=== PATIENT | male | born 1965 | race Caucasian/White ===

== ENCOUNTER 2019-09-10 09:42 | Outpatient (CLI) | payer BC ==
[2019-09-10 14:33] LABS: BASOPHILS # (AUTO) 0.1 10^3/uL (0.0-0.1); BASOPHILS % (AUTO) 0.9 %; EOSINOPHILS # (AUTO) 0.1 10^3/uL (0.0-0.7); EOSINOPHILS % (AUTO) 2.6 %; HGB - HEMOGLOBIN 16.4 g/dL (14.0-18.0); LYMPHOCYTES # (AUTO) 2.5 10^3/uL (1.5-3.5); LYMPHOCYTES % (AUTO) 45.2 %; MEAN CORPUSCULAR HEMOGLOBIN 31.8 pg (27.0-31.0); MEAN CORPUSCULAR HGB CONC 33.5 g/dL (32.0-36.0); MEAN PLATELET VOLUME 10.9 fL (7.4-11.4); MONOCYTES # (AUTO) 0.4 10^3/uL (0.0-1.0); MONOCYTES % (AUTO) 7.3 %; NEUTROPHILS # (AUTO) 2.4 10^3/uL (1.5-6.6); NEUTROPHILS % (AUTO) 43.5 %; PLT - PLATELET COUNT 286 10^3/uL (130-450); RED BLOOD COUNT 5.15 10^6/uL (4.70-6.10); RED CELL DISTRIBUTION WIDTH 11.9 % (12.0-15.0); WHITE BLOOD COUNT 5.5 x10^3/uL (4.8-10.8)
[2019-09-10 15:08] LABS: ALBUMIN 4.6 g/dL (3.2-5.5); ALBUMIN/GLOBULIN RATIO 1.5 (1.0-2.2); ALKALINE PHOSPHATASE 48 IU/L (42-121); ALT ALANINE AMINOTRANSFERASE 29 IU/L (10-60); AST ASPARTATE AMINOTRANSFERASE 21 IU/L (10-42); BUN - BLOOD UREA NITROGEN 19 mg/dL (6-20); CALCIUM 9.6 mg/dL (8.5-10.3); CARBON DIOXIDE - CO2 26 mmol/L (21-32); CHLORIDE 105 mmol/L (101-111); CHOL/HDL RATIO 3.7 (<5.0); CHOLESTEROL 157 mg/dL; CREATININE 1.1 mg/dL (0.6-1.2); GFR - MDRD 70 (>89); GLUCOSE 97 mg/dL (70-100); HDL CHOLESTEROL 42 mg/dL; LDL CHOLESTEROL,CALCULATED 95 mg/dL; LDL/HDL RATIO 2.3 (<3.6); SODIUM 140 mmol/L (135-145); TOTAL PROTEIN 7.6 g/dL (6.7-8.2); VLDL CHOLESTEROL 20 mg/dL
== END 2019-09-10 23:59 | disposition home or self-care (01) ==
LOC: LAB.WCP 09:42
PROVIDERS: ATTEND Physician Assistant Medical
DX: Z00.00 Encounter for general adult medical examination without abnormal findings (principal)
CPT/HCPCS: 36415; 80053; 80061; 83721; 84153; 84443; 85025

== ENCOUNTER 2021-10-30 07:03 | Day surgery (SDC) | payer BC ==
[2021-10-30] MEDS ORDERED: LACTATED RINGERS 1,000 ML IV ONE ×2 (07:12→08:57)
[2021-10-30] MEDS ORDERED: PROPOFOL 500 MG/50 ML 500 MG/50 ML VIAL ONE (08:01)
[2021-10-30] MEDS ORDERED: fentaNYL 100 MCG/2 ML VIAL ONE (08:03)
[2021-10-30] MEDS ORDERED: MIDAZOLAM 2 MG/2 ML VIAL ONE (08:03)
--- NOTE | 2021-10-30 08:10 | ANESTHESIA ---
Pre-Anesthesia VS, & Labs - Diagnosis screening - Procedure colonoscopy Vital Signs: Temp Pulse Resp BP Pulse Ox 36.4 C L 61 14 125/89 H 96 10/30/21 07:10 10/30/21 07:10 10/30/21 07:10 10/30/21 07:10 10/30/21 07:10 Height: 6 ft 2 in Weight (kg): 122 kg Body Mass Index: 34.5 BMI Classification: Obese - NPO >8 hours Home Medications and Allergies Home Medications: Ambulatory Orders Ascorbic Acid [Vitamin C] 1 tab PO DAILY 10/29/21 Cholecalciferol [Vitamin D3] 1 cap PO DAILY 10/29/21 Ibuprofen [Motrin] 1 tab PO DAILY 10/29/21 Multivitamin 1 each PO DAILY 10/29/21 Ascorbic Acid [Vitamin C] 1 tab PO DAILY 10/29/21 Cholecalciferol [Vitamin D3] 1 cap PO DAILY 10/29/21 Ibuprofen [Motrin] 1 tab PO DAILY 10/29/21 Multivitamin 1 each PO DAILY 10/29/21 Allergies/Adverse Reactions: Allergies Allergy/AdvReac Type Severity Reaction Status Date / Time No Known Drug Allergies Allergy Verified 10/30/21 07:36 Anes History & Medical History - Anesthetic History Anesthesia Complications: reports: No previous complications Family history of Anesthesia Complications: Denies Family history of Malignant Hyperthermia: Denies - Medical History Cardiovascular: reports: Other Pulmonary: reports: Sleep apnea Gastrointestinal: reports: Colon polyps Urinary: reports: Frequency Musculoskeletal: reports: Osteoarthritis Endocrine/Autoimmune: reports: None Skin: reports: Eczema - Surgical History General: reports: Appendectomy, Colonoscopy Eyes Ears Nose Throat (EENT): reports: Other Cardiothoracic: reports: Other Orthopedic: reports: Arthroscopic surgery Exam General: Alert, Oriented x3, Cooperative Dental: WNL Mouth Openin Fingerbreadth Neck Mobility: Normal Mallampati classification: II Thyromental Distance: 4-6 cm Respiratory: Lungs clear Cardiovascular: Regular rate Plan Anesthesia Type: Total IV Regional Block: Per Surgeon's request for Post Op pain control Consent for Procedure(s) Verified and Reviewed: Yes Code Status: Attempt Resuscitation ASA classification: 2-Mild systemic disease Is this case an emergency?: No
--- NOTE | 2021-10-30 08:21 | HISTORY & PHYSICAL EXAMINATION ---
Chief Complaint - Chief Complaint Chief Complaint: history colon polyps History of Present Illness - History Obtained From Records Reviewed: yes History obtained from: pt Exam Limitations: none - History of Present Illness HPI Comment/Other: colonoscopy 06/2016 2 adenomas removed. Here for surveillance. History - Past Medical History Cardiovascular: reports: Other Respiratory: reports: Sleep apnea Endocrine/Autoimmune: reports: None GI: reports: Colon polyps : reports: Frequency HEENT: reports: Chronic hearing loss Psych: reports: None Musculoskeletal: reports: Osteoarthritis Derm: reports: Eczema MRSA Hx?: No - Past Surgical History General: reports: Appendectomy, Colonoscopy Ortho: reports: Arthroscopic surgery Cardiovascular: reports: Other HEENT: reports: Other Meds/Allgy - Home Medications Home Medications: Ambulatory Orders Medication Instructions Recorded Confirmed Ascorbic Acid [Vitamin C] 1 tab PO DAILY 10/29/21 10/30/21 Cholecalciferol [Vitamin D3] 1 cap PO DAILY 10/29/21 10/30/21 Ibuprofen [Motrin] 1 tab PO DAILY 10/29/21 10/30/21 Multivitamin 1 each PO DAILY 10/29/21 10/30/21 - Allergies Allergies/Adverse Reactions: Allergies Allergy/AdvReac Type Severity Reaction Status Date / Time No Known Drug Allergies Allergy Verified 10/30/21 07:36 Review of Systems - Other Findings Other Findings: 10 pt ros as above otherwise unremarkable Exam - Vital Signs Reviewed Vital Signs: Yes Vital Signs: Vital Signs x48h Temp Pulse Resp BP Pulse Ox 10/30/21 07:10 36.4 C L 61 14 125/89 H 96 - Physical Exam General Appearance: positive: No acute distress, Alert Eyes Bilateral: positive: PERRL, EOMI Neck: positive: No JVD Respiratory: positive: Breath sounds nml Cardiovascular: positive: Regular rate & rhythm Abdomen: positive: Non-tender, No distention Neurologic/Psychiatric: positive: Oriented x3 Conclusion/Plan - Problem List (1) History of adenomatous polyp of colon Conclusion/Plan: plan colonoscopy. parq held and consent obtained
[2021-10-30 09:20] VITALS: BP 119/84
--- NOTE | 2021-10-30 10:18 | ANESTHESIA POST OP EVALUATION ---
Anesthesia Post Eval - Post Anesthesia Eval Vitals: Last Vital Signs Temp 36.4 C L 10/30/21 09:18 Pulse 64 10/30/21 09:18 Resp 14 10/30/21 09:18 BP 119/84 H 10/30/21 09:18 Pulse Ox 98 10/30/21 09:18 CV Function Including HR & BP: Stable Pain Control: Satisfactory Nausea & Vomiting: Negative Mental Status: Baseline Respiratory Status: Airway Patent Hydration Status: Satisfactory Anesthesia Complications: None
== END 2021-10-30 07:04 | disposition home or self-care (01) ==
LOC: SDS 07:03
PROVIDERS: ATTEND Surgery
PROC: 0DBH8ZZ Excision of Cecum, Via Natural or Artificial Opening Endoscopic (ICD-10-PCS; principal; 2021-10-30 08:30)
DX: Z12.11 Encounter for screening for malignant neoplasm of colon (principal); D12.0 Benign neoplasm of cecum; K57.30 Diverticulosis of large intestine without perforation or abscess without bleeding; E66.9 Obesity, unspecified; Z68.34 Body mass index [BMI] 34.0-34.9, adult; G47.30 Sleep apnea, unspecified
CPT/HCPCS: 45380; J7120

== ENCOUNTER 2022-09-01 08:17 | Outpatient (CLI) | payer BC ==
[2022-09-01 12:22] LABS: BASOPHILS # (AUTO) 0.1 10^3/uL (0.0-0.1); BASOPHILS % (AUTO) 0.6 %; EOSINOPHILS # (AUTO) 0.1 10^3/uL (0.0-0.7); EOSINOPHILS % (AUTO) 1.5 %; HCT - HEMATOCRIT 49.1 % (42.0-52.0); HGB - HEMOGLOBIN 16.6 g/dL (14.0-18.0); LYMPHOCYTES # (AUTO) 2.6 10^3/uL (1.5-3.5); LYMPHOCYTES % (AUTO) 29.8 %; MEAN CORPUSCULAR HEMOGLOBIN 31.7 pg (27.0-31.0); MEAN CORPUSCULAR HGB CONC 33.8 g/dL (32.0-36.0); MEAN CORPUSCULAR VOLUME 93.9 fL (80.0-94.0); MEAN PLATELET VOLUME 10.6 fL (7.4-11.4); MONOCYTES # (AUTO) 0.7 10^3/uL (0.0-1.0); MONOCYTES % (AUTO) 7.7 %; NEUTROPHILS # (AUTO) 5.2 10^3/uL (1.5-6.6); NEUTROPHILS % (AUTO) 59.8 %; PLT - PLATELET COUNT 250 10^3/uL (130-450); RED BLOOD COUNT 5.23 10^6/uL (4.70-6.10); RED CELL DISTRIBUTION WIDTH 11.9 % (12.0-15.0); WHITE BLOOD COUNT 8.7 x10^3/uL (4.8-10.8)
[2022-09-01 13:25] LABS: ALBUMIN 4.6 g/dL (3.2-5.5); ALBUMIN/GLOBULIN RATIO 1.4 (1.0-2.2); ALKALINE PHOSPHATASE 54 IU/L (42-121); ALT ALANINE AMINOTRANSFERASE 25 IU/L (10-60); AST ASPARTATE AMINOTRANSFERASE 21 IU/L (10-42); BILIRUBIN,TOTAL 1.3 mg/dL (0.2-1.0); BUN - BLOOD UREA NITROGEN 21 mg/dL (6-20); CALCIUM 9.2 mg/dL (8.5-10.3); CARBON DIOXIDE - CO2 25 mmol/L (21-32); CHLORIDE 100 mmol/L (101-111); CHOL/HDL RATIO 4.3 (<5.0); CHOLESTEROL 201 mg/dL; CREATININE 1.1 mg/dL (0.6-1.2); GFR - MDRD 69 (>89); GLUCOSE 115 mg/dL (70-100); HDL CHOLESTEROL 47 mg/dL; LDL CHOLESTEROL,CALCULATED 130 mg/dL; LDL/HDL RATIO 2.8 (<3.6); POTASSIUM 4.6 mmol/L (3.5-5.0); SODIUM 135 mmol/L (135-145); TRIGLYCERIDES 121 mg/dL; VLDL CHOLESTEROL 24 mg/dL
[2022-09-01 13:28] LABS: THYROID STIMULATING HORMONE 3.49 uIU/mL (0.34-5.60)
== END 2022-09-01 08:18 | disposition home or self-care (01) ==
LOC: LAB.N 08:17
PROVIDERS: ATTEND Physician Assistant Medical
DX: Z00.00 Encounter for general adult medical examination without abnormal findings (principal); Z12.5 Encounter for screening for malignant neoplasm of prostate
CPT/HCPCS: 36415; 80053; 80061; 83721; 84153; 84443; 85025

== ENCOUNTER 2022-10-05 06:53 | Outpatient (CLI) | payer BC ==
--- NOTE | 2022-10-06 10:36 | Ultrasound Report ---
PROCEDURE: Abdomen Limited INDICATIONS: ABD SOFT TISSUE MASS TECHNIQUE: Real-time focused scanning was performed of the abdomen, with image documentation. COMPARISON: None. FINDINGS: Ultrasound was performed in the areas of interest. Multiple subcutaneous masses are identi fied in the sitting ultrasound attenuation, most likely subcutaneous lipomas . Mass 1: 2.2 x 1.6 x 5.3 cm; right lower anterior abdomen. Mass 2: 1.7 x 1.1 x 2.3 cm; right lower anterior abdomen. Mass 3: 4.4 x 2.1 x 5.7 cm; right buttock. Mass 4: 2.3 x 1.0 x 2.6 cm; left lower anterior abdomen Mass 5: 3.7 x 1.3 x 2.9 cm; subxiphoid IMPRESSION: Multiple subcutaneous masses are listed as above in the areas of interest, most likely subcutaneous l ipomas. A differential diagnosis is liposarcomas or metastasis. If there is personal history of cance r, focal pain and tenderness, or enlargement, MRI with and without contrast is recommended for furthe r evaluation. Reviewed by: Tyler Wolf MD on 10/06/2022 10:35 AM PST Approved by: Tyler Wolf MD on 10/06/2022 10:35 AM PST Station ID: [id number]
== END 2022-10-05 06:54 | disposition home or self-care (01) ==
LOC: DI 06:53
PROVIDERS: ATTEND Family Medicine
DX: R22.2 Localized swelling, mass and lump, trunk (principal)

== ENCOUNTER 2023-03-11 06:14 | Day surgery (SDC) | payer BC ==
[2023-03-11] MEDS ORDERED: ceFAZolin 2 GM VIAL ONE (06:23)
[2023-03-11] MEDS ORDERED: LACTATED RINGERS 1,000 ML IV ONE ×2 (06:55→09:10)
[2023-03-11] MEDS ORDERED: HYDROmorphone 0.5 MG/0.5 ML SYRINGE IVP PRN (06:58)
[2023-03-11] MEDS ORDERED: ONDANSETRON 4 MG/2 ML VIAL IVP PRN (06:58)
[2023-03-11] MEDS ORDERED: NALOXONE 0.4 MG/ML VIAL IVP PRN (06:58)
[2023-03-11] MEDS ORDERED: ePHEDrine 50 MG/ML VIAL IVP PRN (06:58)
[2023-03-11] MEDS ORDERED: fentaNYL 100 MCG/2 ML VIAL IVP PRN (06:58)
[2023-03-11] MEDS ORDERED: METOCLOPRAMIDE 10 MG/2 ML VIAL IVP PRN (06:58)
[2023-03-11] MEDS ORDERED: ATROPINE ABBOJECT 1 MG/10 ML SYRINGE IVP PRN (06:58)
[2023-03-11] MEDS ORDERED: MORPHINE 2 MG/ML CARPUJECT IVP PRN (06:58)
--- NOTE | 2023-03-11 06:58 | ANESTHESIA ---
Pre-Anesthesia VS, & Labs - Diagnosis subcutaneous masses x 5 at abdomen - Procedure excision subcutaneous masses at anterior abdomen Vital Signs: Temp Pulse Resp BP Pulse Ox O2 Flow Rate 36.2 C L 52 L 16 148/83 H 96 03/11/23 06:36 03/11/23 06:36 03/11/23 06:36 03/11/23 06:36 03/11/23 06:36 Height: 6 ft 2 in Weight (kg): 124.5 kg Body Mass Index: 35.2 BMI Classification: Obese - NPO >8 hours - Lab Results Lab results reviewed: Yes Home Medications and Allergies Home Medications: Ambulatory Orders Oxymetazoline HCl [Afrin] 1 spray NS DAILY 02/25/23 Propranolol HCl 20 mg PO DAILY 02/25/23 Ascorbic Acid [Vitamin C] 1 tab PO DAILY 10/29/21 Multivitamin 1 each PO DAILY 10/29/21 Oxymetazoline HCl [Afrin] 1 spray NS DAILY 02/25/23 Propranolol HCl 20 mg PO DAILY 02/25/23 Allergies/Adverse Reactions: Allergies Allergy/AdvReac Type Severity Reaction Status Date / Time No Known Drug Allergies Allergy Verified 10/30/21 07:36 Anes History & Medical History - Anesthetic History Anesthesia Complications: reports: No previous complications Family history of Anesthesia Complications: Denies Family history of Malignant Hyperthermia: Denies - Medical History Cardiovascular: reports: Other (hx SVT with ablation, resolved) Pulmonary: reports: Sleep apnea Gastrointestinal: reports: Colon polyps Urinary: reports: Frequency Musculoskeletal: reports: Osteoarthritis Endocrine/Autoimmune: reports: None Skin: reports: Eczema Psychosocial: reports: Alcohol (social) History of Cancer?: No - Surgical History General: reports: Appendectomy, Colonoscopy Eyes Ears Nose Throat (EENT): reports: Other Cardiothoracic: reports: Other Orthopedic: reports: Arthroscopic surgery Exam General: Alert, Oriented x3, Cooperative Dental: WNL Mouth Openin Fingerbreadth Neck Mobility: Normal Mallampati classification: II Thyromental Distance: 4-6 cm Respiratory: Lungs clear, Normal breath sounds, No respiratory distress Cardiovascular: Regular rate Neurological: Normal speech Mental/Cognitive Status: Alert/Oriented X3, Normal for patient Plan Anesthesia Type: General Consent for Procedure(s) Verified and Reviewed: Yes Code Status: Attempt Resuscitation ASA classification: 2-Mild systemic disease Is this case an emergency?: No
[2023-03-11] MEDS ORDERED: LACTATED RINGERS 1,000 ML IV SCH (07:00)
[2023-03-11] MEDS ORDERED: fentaNYL 100 MCG/2 ML VIAL ONE (07:08)
[2023-03-11] MEDS ORDERED: BUPIVACAINE 0.5%-EPI 1:200000 PF 30 ML VIAL ONE (07:08)
[2023-03-11] MEDS ORDERED: MIDAZOLAM 2 MG/2 ML VIAL ONE (07:08)
[2023-03-11] MEDS ORDERED: PROPOFOL 200 MG/20 ML VIAL IVP ONE (07:09)
[2023-03-11] MEDS ORDERED: LIDOCAINE-PF 2% 10 ML AMP SUBQ ONE (07:09)
[2023-03-11] MEDS ORDERED: GLYCOPYRROLATE 1 MG/5 ML VIAL ONE (07:59)
[2023-03-11] MEDS ORDERED: ONDANSETRON 4 MG/2 ML VIAL ONE (08:03)
[2023-03-11] MEDS ORDERED: DEXAMETHASONE 4 MG/ML VIAL ONE (08:03)
[2023-03-11] MEDS ORDERED: BUPIVACAINE 0.5%-EPI 1:200000 PF 30 ML VIAL SUBQ ONE (08:04)
[2023-03-11] MEDS ORDERED: KETOROLAC 30 MG/ML VIAL ONE (08:39)
--- NOTE | 2023-03-11 09:10 | OPERATIVE REPORT ---
Operative Report - General Procedure Date: 03/11/23 Planned Procedure: Excision of subcutaneous and subfascial masses x5 of the abdomen/trunk Pre-Op Diagnosis: 5 subcutaneous/subfascial truncal masses increasingly symptomatic Procedure Performed: Excision of subxiphoid abdominal mass (subcutaneous) < 3 cm Excision of right lower quadrant abdominal mass x2 (subcutaneous) < 3 cm Excision of left posterior abdomen mass (subfascial) > 5 cm Excision of right posterior abdominal mass (subfascial) > 5 cm Post Op Diagnosis: Likely lipomas - Procedure Note Primary Surgeon: Moy Flores MD Anesthesia Provider: [place] Don[place]ue CRNA Anesthesia Technique: General LMA, Local (30 mL of half percent Marcaine with epinephrine) IV Fluids (mL): 700 Estimated Blood Loss (mL): 10 Drain/Tube Type: Other (None) Indications: Increasingly symptomatic/painful slowly enlarging subcutaneous and subfascial masses Findings: The masses in the subxiphoid and right lower quadrant position were subcutaneous and were round-basia whereas the more posterior masses were larger and were more like a "caramel turtle" in other words it had multiple little feet that all had to be dissected out Complications: None - Other Other Information/Narrative: After verbal and written informed consent was obtained detailing the operation, the alternatives the operation including no operation, risks of infection, bleeding requiring transfusion with its risks, nerve injury, and and after I met with the patient confirming the surgery and the site of surgery, the patient was brought to the operative suite and placed supine on the operating table. Great care was taken to avoid pressure points to prevent pressure necrosis or nerve injury. Monitoring devices were applied along with TEDs and pneumatic compression stockings (to prevent DVT). The patient received preoperative antibiotics for surgical prophylaxis. [place] Don[place] CRNA sedated and anesthetized the patient for the entire procedure. The patient was prepped and draped in the usual sterile manner. With the patient draped my initials were clearly visible. A "time in" then confirmed that the patient was identified with 3 identifiers (name, date, and medical record number), the history and physical was updated and in the chart, the signed consent confirming the procedure was in the chart, the patient was in the correct position, the aforementioned prophylactic measures were in place or given, we had the correct personnel and equipment to complete the procedure and that anesthesia and the surgical team were given an opportunity to express any concerns. With the agreement of everyone in the room we proceeded with the operation. The subxiphoid mass was addressed first. A transverse incision was made overlying the mass and dissection down to the mass was accomplished using knife as well as Bovie electrocautery. Hemostasis was obtained using Bovie electrocautery. The mass itself was encountered quite quickly and was a relatively well encapsulated fatty tumor. This was removed in total. Hemostasis again was obtained using Bovie electrocautery. The subcutaneous tissues were approximated using a 3-0 Vicryl suture. Skin was approximated using a 3-0 nylon in a mattress fashion with anticipation of placing Dermabond on the wound at the end of the case and removing the sutures. The right lower quadrant masses were then addressed second. Transverse incision incision was made overlying the largest of the 2 masses and dissection down to the mass again was accomplished using a combination of knife as well as Bovie electrocautery. This mass was similarly well encapsulated and was removed in total. Again this was consistent with a fatty tumor (lipoma). Rather than make another incision I tolerate the skin to the second mass and removed it. It was smaller and similarly encapsulated. There was also removed in total. Hemostasis was obtained using Bovie electrocautery. The subcutaneous tissues were approximated using 3-0 Vicryl suture. The skin was then approximated using a 3-0 nylon in a mattress fashion in anticipation of placing Dermabond at the end of the case. The plan was to remove the suture and the mattress suture was just placed to line up the skin appropriately. The left posterior mass was then addressed. Again, a transverse incision was made overlying the mass and dissection down to the mass was accomplished again using a knife as well as Bovie electrocautery. Hemostasis was obtained using Bovie electrocautery. The difference in this mass is that it was much deeper and approached the deep fascia. This mass also was not round but rather more like a caramel turtle and otherwise it had more areas where the tumor was growing into and creating "legs". This required significant more dissection in order to remove the entire mass. Where it approached the fascia and this was approximated using a single 2-0 Vicryl suture. The subcutaneous tissues was approximated using a 3-0 Vicryl suture and the skin was approximated using 3-0 nylon in a mattress fashion lining of the skin to allow for placement of Dermabond at the end of the case. The last mass which was on the right posterior aspect of the patient's abdomen was addressed last. This was the largest of the masses. Again, a transverse incision was made overlying the mass and dissection down to the mass was accomplished using knife and Bovie electrocautery. This was significantly larger and deeper than any of the other masses. Additionally this had more "legs." As such this required significantly more dissection and the tumor itself was removed piecemeal. Again in areas where this had broached the deep fascia the fascia was approximated using a 2-0 Vicryl suture. Digital examination ensured that I removed the entire mass. The subcutaneous tissues were approximated using a 3-0 Vicryl suture and 3-0 nylon mattress sutures were placed over this to line up the skin much like the other incisions. At this point all sites were injected using half percent Marcaine with epinephrine for pain control. Dermabond was placed starting at the subxiphoid position and the nylon sutures were removed. The closure was then buttressed using half-inch Steri-Strips. This was similarly done with the right lower quadrant incision. Again, this was done in the left posterior mass. Once I encountered the right posterior mass however this did not allow for placement of Dermabond and Steri-Strips as it was still oozing. I removed the nylon sutures and placed 4-0 Monocryl in a subcuticular fashion and then two 4-0 Monocryl sutures to approximate the skin and then overlaid this with Dermabond and Steri-Strips. This allowed for closure of the wound without any significant oozing. At this point a timeout was performed that confirmed that all counts were correct x2, the procedure that was performed, the blood loss, the IV fluids administered, the patient's condition, and any concerns of the operating team had. Having tolerated the procedure well, the patient was taken recovery room in good and stable condition. Gentle downward traction ensured the testes were well seated in the scrotum. The plan is for outpatient discharge when the patient is adequately recovered. See report for size CPT Excision of subxiphoid abdominal mass (subcutaneous) < 3 cm 87445 Excision of right lower quadrant abdominal mass x2 (subcutaneous) < 3 cm 08796 Excision of left posterior abdomen mass (subfascial) > 5 cm 42223 Excision of right posterior abdominal mass (subfascial) > 5 cm 11091 This document was created in part using voice recognition technology. Because of the inherent limitations of the system, occasional same sounding word substitutions and grammatical errors do occur and persist despite proofreading. Please read this document for content.
[2023-03-11] MEDS ORDERED: HYDROmorphone 0.5 MG/0.5 ML SYRINGE ONE (09:25)
[2023-03-11] MEDS ORDERED: HYDROcod/ACETAM 5/325 MG TABLET PO PRN (09:51)
[2023-03-11] MEDS ORDERED: HYDROcod/ACETAM 5/325 MG TABLET ONE (10:06)
[2023-03-11 10:09] VITALS: BP 148/92
--- NOTE | 2023-03-11 12:35 | ANESTHESIA POST OP EVALUATION ---
Anesthesia Post Eval - Post Anesthesia Eval Vitals: Last Vital Signs Temp 36.5 C 03/11/23 10:05 Pulse 76 03/11/23 10:05 Resp 16 03/11/23 10:05 BP 148/92 H 03/11/23 10:05 Pulse Ox 99 03/11/23 10:05 O2 Flow Rate CV Function Including HR & BP: Stable Pain Control: Satisfactory Nausea & Vomiting: Negative Mental Status: Baseline Respiratory Status: Airway Patent Hydration Status: Satisfactory Anesthesia Complications: None
== END 2023-03-11 06:15 | disposition home or self-care (01) ==
LOC: SDS 06:14
PROVIDERS: ATTEND Surgery
PROC: 0JB80ZZ Excision of Abdomen Subcutaneous Tissue and Fascia, Open Approach (ICD-10-PCS; principal; 2023-03-11 07:30)
DX: D17.1 Benign lipomatous neoplasm of skin and subcutaneous tissue of trunk (principal); E66.9 Obesity, unspecified; Z68.35 Body mass index [BMI] 35.0-35.9, adult; Z87.891 Personal history of nicotine dependence
CPT/HCPCS: 21932; 22902; A9270; J1170; J7120

== ENCOUNTER 2023-11-17 10:31 | Outpatient (CLI) | payer BC ==
[2023-11-17 17:32] LABS: BASOPHILS # (AUTO) 0.1 10^3/uL (0.0-0.1); BASOPHILS % (AUTO) 0.9 %; EOSINOPHILS # (AUTO) 0.2 10^3/uL (0.0-0.7); EOSINOPHILS % (AUTO) 3.7 %; HGB - HEMOGLOBIN 15.5 g/dL (14.0-18.0); LYMPHOCYTES # (AUTO) 2.6 10^3/uL (1.5-3.5); LYMPHOCYTES % (AUTO) 48.4 %; MEAN CORPUSCULAR HEMOGLOBIN 31.8 pg (27.0-31.0); MEAN CORPUSCULAR VOLUME 96.5 fL (80.0-94.0); MEAN PLATELET VOLUME 10.6 fL (7.4-11.4); MONOCYTES # (AUTO) 0.4 10^3/uL (0.0-1.0); MONOCYTES % (AUTO) 7.7 %; NEUTROPHILS # (AUTO) 2.1 10^3/uL (1.5-6.6); NEUTROPHILS % (AUTO) 38.7 %; PLT - PLATELET COUNT 265 10^3/uL (130-450); RED BLOOD COUNT 4.87 10^6/uL (4.70-6.10); WHITE BLOOD COUNT 5.4 x10^3/uL (4.8-10.8)
[2023-11-17 18:17] LABS: ALBUMIN 4.3 g/dL (3.2-5.5); ALBUMIN/GLOBULIN RATIO 1.5 (1.0-2.2); ALKALINE PHOSPHATASE 55 IU/L (42-121); ALT ALANINE AMINOTRANSFERASE 18 IU/L (10-60); AST ASPARTATE AMINOTRANSFERASE 17 IU/L (10-42); BILIRUBIN,TOTAL 0.8 mg/dL (0.2-1.0); BUN - BLOOD UREA NITROGEN 17 mg/dL (6-20); CALCIUM 9.5 mg/dL (8.5-10.3); CARBON DIOXIDE - CO2 26 mmol/L (21-32); CHLORIDE 105 mmol/L (101-111); CHOL/HDL RATIO 4.3 (<5.0); CHOLESTEROL 181 mg/dL; CREATININE 0.8 mg/dL (0.6-1.3); GFR - MDRD 100 (>89); GLUCOSE 106 mg/dL (74-104); HDL CHOLESTEROL 42 mg/dL; LDL CHOLESTEROL,CALCULATED 111 mg/dL; LDL/HDL RATIO 2.6 (<3.6); POTASSIUM 4.1 mmol/L (3.5-4.5); SODIUM 137 mmol/L (135-145); TOTAL PROTEIN 7.1 g/dL (6.4-8.9); TRIGLYCERIDES 142 mg/dL (48-352); VLDL CHOLESTEROL 28 mg/dL
[2023-11-17 20:52] LABS: ESTIMATED AVERAGE GLUCOSE 111 mg/dL (70-100); HEMOGLOBIN A1c% 5.5 % (4.27-6.07)
== END 2023-11-17 10:32 | disposition home or self-care (01) ==
LOC: LAB.N 10:31
PROVIDERS: ATTEND Physician Assistant Medical
DX: Z00.00 Encounter for general adult medical examination without abnormal findings (principal); Z12.5 Encounter for screening for malignant neoplasm of prostate; R73.9 Hyperglycemia, unspecified
CPT/HCPCS: 36415; 80053; 80061; 83036; 83721; 84153; 84443; 85025